=== PATIENT | female | born 1955 | race Caucasian/White ===

== ENCOUNTER 2018-05-06 06:31 | Day surgery (SDC) | payer BC ==
--- NOTE | 2018-04-28 09:38 | HP ---
PREOPERATIVE HISTORY AND PHYSICAL: DATE OF SURGERY/ADMISSION: 05/06/18 [facility] DATE OF OFFICE VISIT/ENCOUNTER: 04/23/18 ATTENDING SURGEON: Munira Oden MD.* (DICTATED BY ASHANTI SMITH) PROCEDURE: Left ring finger cyst excision. CHIEF COMPLAINT: Cyst, left ring finger. HISTORY OF PRESENT ILLNESS: This is a 62-year-old female who complains of a lump on the dorsal aspect of her left ring finger that has been present for approximately 6 months. It has gradually gotten larger and more painful, particularly over the past month. She cannot recall specific injury. She has no associated numbness and tingling. She would like to have the cyst surgically removed. PAST MEDICAL HISTORY: 1. Exercise-induced asthma. 2. Osteoporosis. 3. Arthritis. PAST SURGICAL HISTORY: 1. Bilateral cataract excision. 2. Right foot surgery. CURRENT MEDICATIONS: 1. Calcium + D 500/400 mg 1 tab daily. 2. Claritin-D 12-hour 5/120 mg p.r.n. 3. Flovent HFA 100 mcg/ACT 2 puffs twice daily. 4. Ibuprofen 400 mg q.4 to 6 hours p.r.n. 5. Nasonex 50 mcg/ACT 2 sprays each nostril twice daily. 6. Reclast yearly IV infusion. 7. Ventolin HFA 108 (90 base) mcg/act 1 to 2 inhalations every 4 hours as needed. 8. Vitamin D3 Super Strength 3000 units daily. ALLERGIES: AUGMENTIN and PENICILLIN cause hives. FAMILY HISTORY: Heart disease and COPD. 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 She denies tobacco use and recreational drug use. She does drink alcohol on occasion. REVIEW OF SYSTEMS: General: Negative for fevers, chills, night sweats, unexplained weight loss or gain, no known anesthesia problems in the past. HEENT: Negative for headache, lightheadedness, syncopal episodes, visual changes. Integumentary: Negative for abrasions, lesions, open wounds. Cardiothoracic: Negative for hypertension, chest pain, palpitations, edema. Respiratory: Negative for shortness of breath with exertion, chronic cough, wheezing. GI: Negative for nausea, vomiting, diarrhea, constipation, GERD. : Negative for nocturia, urinary frequency, urgency, history of UTIs, kidney problems. Musculoskeletal: Positive for current complaint. Negative for chronic or intermittent back pain or history of fractures. Neurological: Negative for paresthesias, numbness, history of seizure, stroke, poor balance. Endocrine: Negative for diabetes and thyroid issues. Hematologic: Negative for easy bruising, anemia, bleeding disorders, history of DVT. Infectious Disease: Negative for history of MRSA, hepatitis C, HIV. PHYSICAL EXAMINATION GENERAL: Well-developed, well-nourished 62-year-old female, in no acute distress. VITAL SIGNS: Height 5 feet 3.5 Inches, weight 147 pounds. Pulse rate 62, blood pressure 110/70. HEENT: Normocephalic, atraumatic. Pupils are equal, round and reactive to light and accommodation. Throat is clear. NECK: Supple. No palpable lymph nodes. PULMONARY: Lungs are clear to auscultation bilaterally. No wheezes, rales or rhonchi. CARDIOVASCULAR: Regular rate and rhythm. S1, S2. No murmurs, rubs or gallops. No edema. ABDOMEN: Positive bowel sounds, soft, nontender. MUSCULOSKELETAL: On exam of her left ring finger, she has a cystic mass just distal to the DIP joint on the dorsal aspect of the finger. It has not caused any changes in the fingernail. She has active flexion and extension of the finger. She has obvious degenerative changes in her other fingers. Skin is intact. Neurovascular function is intact. NEUROLOGICAL: Alert and oriented x3. Cranial nerves II through XII are intact. Sensation is intact to light touch. IMAGING STUDIES: X-ray AP, lateral, and oblique of the left hand showed diffuse degenerative changes. IMPRESSION: Left ring finger mucous cyst. PLAN: The patient is scheduled to undergo a left ring finger cyst excision with Dr. Oden on 05/06/18. She will return to the office 10 days postop for followup and suture removal. A prescription for Ultracet was e-scribed to the patient's pharmacy for postoperative pain management. ASHANTI SMITH [id number]/[facility] #: [id number] MARY LOU
[~2018-05-06 06:31] MED LIST: Buffered Lidocaine 0.9% SYRIN* 5 ML/SYR SYRINGE INTRADERM ONE
[2018-05-06] MEDS ORDERED: Lidocaine 1% INJ* 10 MG/ML 30 ML SDV ONE (07:06)
[2018-05-06] MEDS ORDERED: Lidocaine 2% PF * 5 ML VIAL ONE (08:12)
[2018-05-06] MEDS ORDERED: Propofol* 10 MG/ML 20 ML BTL IV PUSH ONE (08:12)
[2018-05-06] MEDS ORDERED: Naloxone* 0.4 MG/ML 1 ML VIAL IV PRN (08:14)
[2018-05-06 08:53] VITALS: BP 111/77
--- NOTE | 2018-05-06 13:02 | OP ---
CC: Dr. Oden* OPERATIVE REPORT: DATE OF OPERATION: 05/06/18 - [place] DATE OF : 57 SURGEON: Munira Oden MD UTILIZATION SPECIALIST: ASHANTI Person ANESTHESIOLOGIST: Juan F Sarabia DO ANESTHESIA: Local MAC. PRE-OP DIAGNOSIS: Left ring finger mass. POST-OP DIAGNOSIS: Left ring finger mass. OPERATIVE PROCEDURE: Removal of left ring finger mass. INDICATIONS: Maribel is a 62-year-old woman with a painful mass on the dorsal aspect of her left ring finger at the DIP joint; clinically it is a mucous cyst. She presents for excision. ESTIMATED BLOOD LOSS: Zero. TOURNIQUET TIME: About 10 minutes. DESCRIPTION OF PROCEDURE: The patient was brought to the operating room, was given a sedation anesthetic and a digital block with 10 cc of 1% plain lidocaine. Skin of her left hand and forearm was prepped and draped in the usual sterile fashion. The ring finger was exsanguinated with a Tourni-Cot and the Tourni-Cot was left in place during the remainder of the procedure. An H- shaped incision was made on the dorsal aspect of the DIP joint and the skin flaps were carefully elevated up over the ganglion cyst and over the extensor tendon. The cyst was removed and traced down to the DIP joint capsule and was removed with a small portion of the capsule. On either side of the extensor tendon, a longitudinal incision was made in the joint capsule and the underlying osteophytes removed with a rongeur. The wound was irrigated and the skin edges reapproximated with 4-0 nylon suture. The wound was dressed with Xeroform, 4x4, Webril, and Coban. The Tourni-Cot was removed prior to placement of the dressing. The patient tolerated the procedure well and was brought to the recovery room in good condition. [id number]/[facility] #: [id number] [address] HOSPITALMichael
== END 2018-05-06 09:05 | disposition home or self-care (01) ==
LOC: OREAST 06:31
PROVIDERS: ATTEND Orthopaedic Surgery
DX: M67.442 Ganglion, left hand (principal); J45.909 Unspecified asthma, uncomplicated; M81.0 Age-related osteoporosis without current pathological fracture; M19.90 Unspecified osteoarthritis, unspecified site
CPT/HCPCS: 88304; J2704